=== PATIENT | male | born 1955 | race Caucasian/White ===

== ENCOUNTER 2022-05-28 15:15 | Emergency (ER) | payer OTHER, SELFPAY ==
[2022-05-28 15:35] VITALS: BP 170/80; PULSE 89; RESP 18; TEMP 36.7; O2SAT 98; BMI 30.9
--- NOTE | 2022-05-28 15:40 | XRR_ITS ---
PROCEDURE INFORMATION: Exam: XR Right Tibia and Fibula Exam date and time: 05/28/2022 4:12 PM Age: 66 years old Clinical indication: Injury or trauma; Other: Laceration; Lower leg; Left; Foreign body involvement not specified; Additional info: Injury/laceration TECHNIQUE: Imaging protocol: Radiologic exam of the Right tibia and fibula. Views: 2 views. COMPARISON: No relevant prior studies available. FINDINGS: Bones/joints: Normal. Soft tissues: Suspected laceration seen along the medial aspect of the distal tibial diaphysis. XR/XR tibia fibula RT 2V 06007 IMPRESSION: Suspected laceration seen along the medial aspect of the distal tibial diaphysis.
[2022-05-28 15:59] LABS: Basophils % 0.3 %; Eosinophils # 0.1 10^3/uL (0.0-0.8); Eosinophils % 1.2 %; Hematocrit 39.8 % (42.0-52.0); Hemoglobin 13.7 g/dL (11.7-16.6); Lymphocytes # 1.8 10^3/uL (0.8-4.8); Lymphocytes % 20.4 %; Mean Corpuscular HGB Conc 34.4 g/dL (30.0-36.0); Mean Corpuscular Hemoglobin 32.8 pg (28.0-34.0); Mean Corpuscular Volume 95.2 fl (80-94); Mean Platelet Volume 11.2 fL (7.4-10.4); Monocytes # 0.6 10^3/uL (0.2-0.9); Monocytes % 6.9 %; Neutrophils # 6.23 10^3/uL (1.8-7.7); Neutrophils % 70.9 %; Nucleated Red Blood Cells % 0 %; Platelet Count 230 10^3/cmm (130-400); Red Blood Count 4.18 10^6/uL (4.1-5.3); Red Cell Distribution Width 12.4 % (12.1-15.1); White Blood Count 8.8 10^3/uL (4.0-10.0)
--- NOTE | 2022-05-28 16:10 | ED_ITS ---
HPI - General Adult General: Chief complaint: Wound/Laceration Stated complaint: Right calf pain, possible infection/injury Time Seen by Provider: 05/28/22 16:02 History of Present Illness: Patient is a 66-year-old male with history of diabetes who presents emergency room with concerns of right lower extremity wound. Patient tells me that he sustained a laceration 2 weeks ago after a piece of the tree fell onto his right leg. Since then, patient has been cleaning the wound with bacitracin. Patient has noticed intermittent weeping of blood. Patient says that he applies bacitracin ointment every 2 to 3 days. Patient denies any fever/chills, nausea/vomiting. Patient has not noticed any drainage or pus from the wound. Patient set to come to the emergency room for evaluation of the wound because over the last few days the wound has come more painful. Denies naueea/vomiting, fever/chill, chest pain, shortness of breath, abdominal pain, dysuria/hematuria/polyuria, diarrhea/melena/hematochezia. Onset:2 weeks ago Duration:2 weeks Location:home Severity:moderate Associated symptoms: Reports rash (+R medial leg wound); Deny chest pain, dyspnea, nausea, palpitations or vomiting Review of Systems Const: Denies: fever(s) or chills Eyes: Denies: change in vision ENMT: Denies: mouth pain Card: Denies: chest pain or palpitations Resp: Denies: dyspnea or non-productive cough GI: Denies: abdominal pain, nausea, vomiting or diarrhea : Denies: dysuria Musc: Reports: extremity pain (+R leg wound and pain) Skin/Breast: Reports: rash (+R medial leg wound) Neuro: Denies: weakness in extremities Psych: Reports: other (Normal mood) Christopher/Lymph: Denies: easy bruising PFSH ED PFSH: Medical History Diabetes Social History Smoking and tobacco status: never smoked Alcohol intake: never Substance/Drug Use: never Physical Exam Const: COMMON NORMALS: alert HENMT: COMMON NORMALS: atraumatic HEAD & SCALP: atraumatic MOUTH: moist mucous membranes not abnormal Eye: COMMON NORMALS: EOMs intact bilaterally and conjunctivae normal CONJUNCTIVA: Yes conjunctivae normal Neck/C-Spine: COMMON NORMALS: full ROM and supple Resp: COMMON NORMALS: normal respiratory effort and clear to auscultation bilaterally AUSCULTATION: clear to auscultation bilaterally Cardio: COMMON NORMALS: regular rate RATE: regular rate GI: COMMON NORMALS: Soft to palpation and non-tender PALPATION: Yes Soft to palpation Extremity: COMMON NORMALS: full ROM Neuro: SENSORIUM/ORIENTATION: Yes alert MOTOR EXAM: No Abnormal motor strength present and Other motor observations present (no focal motor deficits) Psych: COMMON NORMALS: speech normal SPEECH: Yes normal speech MOOD & AFFECT: Yes euthymic mood OTHER: +R medial mid tib/fib 3cm granulating healing wound without any drainage/ulceration. +Presence mild surrounding erythema around the wound sound tenderness to palpation without any crepitus or bulla Course Vital Signs: Vital signs: Vital Signs Temperature 98.0 F 05/28/22 15:35 Pulse Rate 89 05/28/22 15:35 Respiratory Rate 18 05/28/22 15:35 Blood Pressure 170/80 05/28/22 15:35 Pulse Oximetry 98 05/28/22 15:35 Oxygen Delivery Me thod 05/28/22 15:35 MDM - General Adult Medical Decision Making Patient is a 66-year-old male with history of diabetes who presents emergency room with concerns of right lower extremity wound for 2 weeks. There appears to be a 3 cm right medial healing wound wihtout any drainage with surrounding erythema. Patient is noted to have white count 8.8. Potassium 3.3., Sodium of 133. Patient received Keflex in the ER. Her chest appears to be clear. Ultrasound not show signs of abscess or collection. I have given patient follow up with our special education case manager to be seen by our outpatient wound care clinic for reassessment of wound. Patient aware of a call from our special education case manager to schedule for appointment(s) and verbalizes understanding of the importance of following up. Rx cephalexin for cellulitis Disposition: Discharge. Patient counseled regarding diagnostic impression, treatment plan. Patient given ED strict return precautions to return for continuation, worsening, or development of new symptoms. Instructed to f/u w/ PCP regarding symptoms today. Patient verbalized understanding. Lab Data : 05/28/22 15:54 05/28/22 16:50 Radiology Impressions Tibia/Fibula X-Ray 05/28/22 15:40 IMPRESSION: Suspected laceration seen along the medial aspect of the distal tibial diaphysis. Venous Duplex 05/28/22 16:48 IMPRESSION: 1. Negative for deep venous thrombosis. 2. Subcutaneous edema in the calf. Laboratory Results WBC 8.8 10^3/uL (4.0-10.0) 05/28/22 15:54 RBC 4.18 10^6/uL (4.1-5.3) 05/28/22 15:54 Hgb 13.7 g/dL (11.7-16.6) 05/28/22 15:54 Hct 39.8 % (42.0-52.0) L 05/28/22 15:54 MCV 95.2 fl (80-94) H 05/28/22 15:54 MCH 32.8 pg (28.0-34.0) 05/28/22 15:54 MCHC 34.4 g/dL (30.0-36.0) 05/28/22 15:54 RDW 12.4 % (12.1-15.1) 05/28/22 15:54 Plt Count 230 10^3/cmm (130-400) 05/28/22 15:54 MPV 11.2 fL (7.4-10.4) H 05/28/22 15:54 Neut % (Auto) 70.9 % 05/28/22 15:54 Lymph % (Auto) 20.4 % 05/28/22 15:54 [place] % (Auto) 6.9 % 05/28/22 15:54 Eos % (Auto) 1.2 % 05/28/22 15:54 Baso % (Auto) 0.3 % 05/28/22 15:54 Neut # (Auto) 6.23 10^3/uL (1.8-7.7) 05/28/22 15:54 Lymph # (Auto) 1.8 10^3/uL (0.8-4.8) 05/28/22 15:54 [place] # (Auto) 0.6 10^3/uL (0.2-0.9) 05/28/22 15:54 Eos # (Auto) 0.1 10^3/uL (0.0-0.8) 05/28/22 15:54 Baso # (Auto) 0.0 10^3/uL (0.0-0.1) 05/28/22 15:54 Nucleated RBC % (auto) 0 % 05/28/22 15:54 Nucleated RBCs # 0.0 /100WBC 05/28/22 15:54 Sodium 133 mmol/L (136-145) L 05/28/22 16:50 Potassium 3.3 mmol/L (3.5-5.1) L 05/28/22 16:50 Chloride 95 mmol/L (98-107) L 05/28/22 16:50 Carbon Dioxide 25 mmol/L (22-29) 05/28/22 16:50 Anion Gap 16.3 (5-19) 05/28/22 16:50 BUN 6 mg/dL (8-23) L 05/28/22 16:50 Creatinine 0.7 mg/dL (0.7-1.2) 05/28/22 16:50 GFR Calculation 112.5 mL/min (90-130) 05/28/22 16:50 Glucose 371 mg/dL (65-115) H 05/28/22 16:50 Calculated Osmolality 289 mOsm/kg (285-295) 05/28/22 16:50 Calcium 8.5 mg/dL (8.5-10.5) 05/28/22 16:50 Total Bilirubin 0.4 mg/dL (0.15-1.2) 05/28/22 16:50 AST 11 U/L (0-40) 05/28/22 16:50 ALT 9 U/L (0-41) 05/28/22 16:50 Alkaline Phosphatase 94 U/L (40-130) 05/28/22 16:50 Total Protein 7.2 g/dL (6.6-8.7) 05/28/22 16:50 Albumin 3.5 g/dL (3.5-5.2) 05/28/22 16:50 Globulin 3.7 g/dL (1.3-4.6) 05/28/22 16:50 Imaging Data Other Imaging: Radiologist's impression: [address] [place] [address] Ultrasound Report Signed Patient: Dimitry Ch Unit #: [id number] : 1955 Age/Sex: 66 / M ADM Date: 05/28/22 Loc: ER Room/Bed: Attending Dr: Ordering Provider/Ordering MD: Jack Blank MD Date of Service: 05/28/22 Procedure(s): [place] [address] Accession Number(s): [id number] Report Number: [id number] PROCEDURE INFORMATION: Exam: US Duplex Right Lower Extremity Veins, Limited Exam date and time: 05/28/2022 5:03 PM Age: 66 years old Clinical indication: Pain and injury or trauma; Other: Hit with a block of wood medial RT lower leg; Blunt trauma (contusions or hematomas); Right; Lower extremity, lower leg level; Vessel not specified; Leg, lower; Injury date: 2 weeks ago per PT; Injury details: Block of wood fell from stack and hit PT in medial RT lower leg. It has not healed. Patient HX: Pain at injury site. ; Additional info: Eval for abscess TECHNIQUE: Imaging protocol: Real-time Duplex ultrasound of the Right Lower Extremity with 2-D kilpatrick scale, color Doppler flow and spectral waveform analysis with image documentation. Limited exam was focused on the right lower extremity veins. COMPARISON: CR XR tibia fibula RT 2V 36157 05/28/2022 4:12 PM FINDINGS: Right deep veins: Unremarkable. The common femoral, femoral, proximal profunda femoral and popliteal veins are patent without thrombus. Normal Doppler waveforms. Normal compressibility and/or augmentation response.? Right superficial veins: Unremarkable. Saphenofemoral junction is patent without thrombus. Soft tissues: Subcutaneous edema in the calf. US/[place] [address] IMPRESSION: 1. Negative for deep venous thrombosis. 2. Subcutaneous edema in the calf. ? Dictated By: Abdiel Clifton MD Signed By: Abdiel Clifton MD Signed Date/Time: 05/28/22 174 DD/ [address] [address] XRay Report Signed Patient: Dimitry Ch Unit #: [id number] : 1955 Age/Sex: 66 / M ADM Date: 05/28/22 Loc: ER Room/Bed: Attending Dr: Ordering Provider/Ordering MD: Barber Barrientos DO Date of Service: 05/28/22 Procedure(s): XR tibia fibula RT 2V 10049 Accession Number(s): [id number] Report Number: [id number] PROCEDURE INFORMATION: Exam: XR Right Tibia and Fibula Exam date and time: 05/28/2022 4:12 PM Age: 66 years old Clinical indication: Injury or trauma; Other: Laceration; Lower leg; Left; Foreign body involvement not specified; Additional info: Injury/laceration TECHNIQUE: Imaging protocol: Radiologic exam of the Right tibia and fibula. Views: 2 views. COMPARISON: No relevant prior studies available. FINDINGS: Bones/joints: Normal. Soft tissues:? Suspected laceration seen along the medial aspect of the distal tibial diaphysis. XR/XR tibia fibula RT 2V 62380 IMPRESSION: Suspected laceration seen along the medial aspect of the distal tibial diaphysis. ? Dictated By: Abdiel Clifton MD Signed By: Abdiel Clifton MD Signed Date/Time: 05/28/22 164 DD/ 1612 Discharge Plan Discharge Patient Disposition: Home Clinical Impression: Visit for wound care, Cellulitis, Healing wound Condition: Stable Prescriptions: New cephalexin 500 mg capsule 500 mg PO BID 10 Days Qty: 20 0RF Florastor 250 mg capsule 250 mg PO BID 10 Days Qty: 20 0RF Discharge Orders: Discharge ED (Routine); Ordered 05/28/22 Ordered By: Jack Blank Referrals: Lamberto Granado DO [Primary Care Provider] - Discharge Diet: Advance as tolerated Discharge Activity: Increase activity as tolerated Activity Restrictions/Additional Instructions: Our special education case manager will have you follow-up with the wound clinic in the next few days. You would be expected to have a phone call with our special education case manager who will put you on the schedule. You can expect a call from us in the next 2-3 days. If you don't hear from us, call us back in the emergency room at [phone]. Please take your antibiotics as instructed. Watch out for signs of skin changes/redness, mouth redeness or swelling, nausea/vomiting, diarrhea, blood in the urine or any new or concerning complaints. Coding Level of Care Code ED Cheese Sprayer for Chg Fwd Exam Comprehensive
--- NOTE | 2022-05-28 16:48 | USR_ITS ---
PROCEDURE INFORMATION: Exam: US Duplex Right Lower Extremity Veins, Limited Exam date and time: 05/28/2022 5:03 PM Age: 66 years old Clinical indication: Pain and injury or trauma; Other: Hit with a block of wood medial RT lower leg; Blunt trauma (contusions or hematomas); Right; Lower extremity, lower leg level; Vessel not specified; Leg, lower; Injury date: 2 weeks ago per PT; Injury details: Block of wood fell from stack and hit PT in medial RT lower leg. It has not healed. Patient HX: Pain at injury site. ; Additional info: Eval for abscess TECHNIQUE: Imaging protocol: Real-time Duplex ultrasound of the Right Lower Extremity with 2-D kilpatrick scale, color Doppler flow and spectral waveform analysis with image documentation. Limited exam was focused on the right lower extremity veins. COMPARISON: CR XR tibia fibula RT 2V 97300 05/28/2022 4:12 PM FINDINGS: Right deep veins: Unremarkable. The common femoral, femoral, proximal profunda femoral and popliteal veins are patent without thrombus. Normal Doppler waveforms. Normal compressibility and/or augmentation response. Right superficial veins: Unremarkable. Saphenofemoral junction is patent without thrombus. Soft tissues: Subcutaneous edema in the calf. US/[place] [address] IMPRESSION: 1. Negative for deep venous thrombosis. 2. Subcutaneous edema in the calf.
[2022-05-28 17:19] LABS: Alanine Aminotransferase 9 U/L (0-41); Albumin Level 3.5 g/dL (3.5-5.2); Alkaline Phosphatase 94 U/L (40-130); Anion Gap 16.3 (5-19); Aspartate Amino Transferase 11 U/L (0-40); Blood Urea Nitrogen 6 mg/dL (8-23); Calcium 8.5 mg/dL (8.5-10.5); Carbon Dioxide 25 mmol/L (22-29); Chloride 95 mmol/L (98-107); Globulin 3.7 g/dL (1.3-4.6); Glomerular Filtration Rate 112.5 mL/min (90-130); Glucose 371 mg/dL (65-115); Osmolality Calculated 289 mOsm/kg (285-295); Potassium 3.3 mmol/L (3.5-5.1); Sodium 133 mmol/L (136-145); Total Bilirubin 0.4 mg/dL (0.15-1.2); Total Protein 7.2 g/dL (6.6-8.7)
[2022-05-28 18:33] VITALS: BP 170/80; PULSE 89; RESP 18; TEMP 36.7; O2SAT 98
--- NOTE | 2022-05-31 10:05 | PC.SOCIAL ---
Addendum entered by Ana M Mantilla 06/09/22 13:34: Patient had a follow up appointment scheduled with Wound Care - patient did attend appointment. Original Note: Wound Care F/u Consult received for wound care follow up. Messaged wound care clinic for appointment as well as [facility] Clinic will contact patient with appointment date/time.
== END 2022-05-28 18:35 | disposition home or self-care (01) ==
PROVIDERS: Family Medicine; Emergency Provider Emergency Medicine; PCP Emergency Medicine Emergency Medical Services
DX: L03.115 Cellulitis of right lower limb (principal); E11.9 Type 2 diabetes mellitus without complications
CPT/HCPCS: 36415; 73590; 80053; 85025; 93971; 99285

== ENCOUNTER → 2022-06-03 13:15 | Outpatient (BNVA) | payer OTHER, SELFPAY | PROVIDERS: PCP Emergency Medicine Emergency Medical Services; Visit Provider Nurse Practitioner Family | DX: I96 Gangrene, not elsewhere classified (principal); E11.622 Type 2 diabetes mellitus with other skin ulcer; L97.819 Non-pressure chronic ulcer of other part of right lower leg with unspecified severity | CPT/HCPCS: 11042; 87070; 87077; 87186; 99212 ==

== ENCOUNTER → 2022-06-10 10:28 | Outpatient (BNVA) | payer OTHER, SELFPAY | PROVIDERS: PCP Emergency Medicine Emergency Medical Services; Visit Provider Nurse Practitioner Family | DX: I96 Gangrene, not elsewhere classified (principal); E11.622 Type 2 diabetes mellitus with other skin ulcer; L97.819 Non-pressure chronic ulcer of other part of right lower leg with unspecified severity | CPT/HCPCS: 11043 ==

== ENCOUNTER → 2022-06-18 13:31 | Outpatient (BNVA) | payer OTHER, SELFPAY | PROVIDERS: PCP Emergency Medicine Emergency Medical Services; Visit Provider Surgery | DX: I96 Gangrene, not elsewhere classified (principal); E11.622 Type 2 diabetes mellitus with other skin ulcer; L97.812 Non-pressure chronic ulcer of other part of right lower leg with fat layer exposed | CPT/HCPCS: 11043; A6212 ==

== ENCOUNTER 2022-06-22 11:00 | Day surgery (SDC) | payer OTHER, SELFPAY ==
[2022-06-21 13:53] VITALS: BMI 29.2
[2022-06-22] VITALS (12 sets, daily range): BP systolic 107–179; BP diastolic 42–106; PULSE 58–86; RESP 12–18; TEMP 36.6–36.9; O2SAT 93–100
[2022-06-22] MEDS: heparin 5,000 unit/mL INJ 1 mL 2000 UNIT SUBCUT (11:52)
[2022-06-22] MEDS: sodium chloride 0.9% 1,000 ML 30 ML IV (11:52)
[2022-06-22 12:00] LABS: Glucose Point of Care 245 mg/dL (70-110)
--- NOTE | 2022-06-22 12:01 | W.PM.OPSUD ---
Surgery/Procedure H&P Update DATE OF PROCEDURE: June 22, 2022 DATE H&P PERFORMED: 06/18/22 H&P UPDATE INFORMATION: I have reviewed H&P completed within last 30 days, I have examined patient prior to procedure and No changes to prior documentation PREOP DIAGNOSIS: Right lower extremity wound PRIMARY INDICATION FOR PROCEDURE: The same PLANNED PROCEDURE: Operation Date: 06/22/22 12:40 Proposed Procedures p Debridement of right leg wound 16532,E11.622,L03.115(Right) - Wilber Valdovinos MD
--- NOTE | 2022-06-22 12:06 | ANES.PREANE2 ---
Pre-Anesthetic Assessment Height/Weight: Height 1.6 m Weight 74.843 kg Temp Pulse Resp BP Pulse Ox O2 Del Method 98.4 F 72 12 179/106 93 06/22/22 11:11 06/22/22 11:11 06/22/22 11:11 06/22/22 11:11 06/22/22 11:11 06/22/22 11:38 Preop Diagnosis: Right lower extremity wound Operation Date: 06/22/22 12:40 Proposed Procedures p Debridement of right leg wound 56879,E11.622,L03.115(Right) - Wilber Valdovinos MD Familial anesthetic complications: None Was Beta Sirena taken within 24 hours: N/A Was Clonidine taken within 24 hours: N/A Last intake: Intake Last Liquid Date 06/21/22 Last Liquid Time 19:00 Last Solid Date 06/21/22 Last Solid Time 19:00 Social No alcohol and No tobacco Exam alert, oriented x 3, clear to auscultation bilaterally and regular rate & rhythm Airway Mallampati: Class II Dentition: other (multiple missing, poor dentition) Pulmonary Sleep Apnea CV/HEM Hypertension Metabolic Diabetes Mellitus and Thyroid Disease Neuropsych Cerebrovascular Accident Anesthetic Plan ASA status: 3 Anesthesia: General Other: LMA Risk of > 500 ml blood loss (7ml/kg in children): No Medications/Allergies Home Medications Medication Instructions Recorded Confirmed Last Taken Type ciprofloxacin HCl 500 mg tablet 500 mg PO BID wound infection 06/07/22 06/22/22 06/22/22 Rx days #20 tabs aspirin 81 mg chewable tablet 81 mg PO DAILY 06/22/22 06/22/22 06/20/22 History lisinopril 5 mg tablet 2.5 mg 06/22/22 06/20/22 History metformin 500 mg tablet 500 mg PO BID 06/22/22 06/22/22 06/20/22 History rosuvastatin 10 mg tablet 10 mg PO DAILY 06/22/22 06/22/22 06/20/22 History Allergies Allergy/AdvReac Type Severity Reaction Status Date / Time gabapentin Allergy Unknown Unknown Unverified 06/21/22 13:50 hydrocodone [From Vicodin] Allergy Unknown ADR-Nightma Unverified 06/21/22 13:50 re Current Medications Generic Name Dose Route Start Last Admin Trade Name Freq PRN Reason Stop Dose Admin Sodium Chloride 1,000 mls @ 30 mls/hr 06/22/22 11:15 06/22/22 11:52 Sodium Chloride 0.9% IV 06/23/22 11:14 30 mls/hr .Q24H ABRIL Administration PFSH Anesthesia Medical History Diabetes Social History Smoking and tobacco status: never smoked Alcohol intake: never Data Anesthesia Cardiac Studies: No Data to Display
[2022-06-22] MEDS: acetaminophen 1,000 MG/100 ML PIGGYBACK 400 MG IV (12:11)
--- NOTE | 2022-06-22 13:00 | SUR.OPER ---
1250 vashe solution used for irrigation
--- NOTE | 2022-06-22 13:01 | P.OP_ITS ---
Operative Report Date of procedure: June 22, 2022 Pre-op diagnosis: Preop Diagnosis Right lower extremity wound Post-op diagnosis: Right lower extremity wound Procedure done: Excisional and sharp debridement of right lower extremity wound Implants: Surgicel followed by mini Kerlix then ABDs, Kerlix and William wrap Specimens removed/disposition: Tissues for cultures and sensitivities Surgeon: Wilber Valdovinos MD Local Superintendent: electronic bench technician Hellen Circulating nurse Alva Traylor Anesthesia: General (Crnas Barrie and Antwan) Estimated blood loss (mL): 5 IV fluids (mL): 600 Procedure: After identifying the patient holding area, the right lower extremity was marked before the procedure by myself, patient was then taken to the operative suite, was placed in supine position, IV antibiotics were given per protocol, LMA was placed by the anesthesia provider, prep and drape of the wound region(right posterior lateral aspect of the right calf region) was done under the usual sterile technique. Time-out was done verifying the patient's name/date of /planned procedure and destination after the procedure, all were in agreement.Started by excising the unhealthy necrotic indurated tissues of the wound.Notice undermining of franc woun dcaudad and laerally.Incision was created at the skin level and went all the way down to the subcutaneous tissues and muscular fascial layer. Posterior lateral aspect of the right calf region: Wound measurements ; Pre Debridement measurements; 2.8 x 2.4 x 0.8 cm Post-debridement measurement; 8.6 x 4.4 x 0.9 cm Sharp and excisional debridement using curved Izquierdo scissor and curette all the way to the healthier subcutaneous level /muscular fascial layer Traversing veins were suture-ligated transfixing using 3-0 silk sutures Tissues were sent for cultures and sensitivities Copious Irrigation of the wound was done using Pulsavac 1 L of Vashe followed by 1 L of warm saline, followed by appropriate hemostasis,One large piece of Surgicel was placed at the wound bed followed by packing of the wound was done with miniKerlix impregnated inlidocaine, followed by piece of ABDs, Kerlix and William wrap. Intact right DP and TP arteries were clinically palpable at the end of the procedure. Patient tolerated the procedure well, count of instruments,needles and sponges were completed at the end of the procedure. Patient was then taken to the recovery area in stable condition. I was present for the whole entire procedure
[2022-06-22] MEDS: fentaNYL 50 mcg/mL INJ 2mL IVP (13:15)
--- NOTE | 2022-06-22 13:15 | ANE.PACU2 ---
Inpatient post-anesthesia follow up: Airway intact: Yes Vital signs: Temperature 98.4 F Pulse Rate 72 Respiratory Rate 12 Blood Pressure 179/106 Pulse Oximetry 93 Oxygen Delivery Me thod Room Air Oxygen Flow Rate 6 Fraction of Inspir ed Oxygen Hydration adequate: Yes Nausea and vomiting: No Pain level: 4 Mental status: Baseline
[2022-06-22] MEDS: HYDROcodone-acetaminophen 5-325 mg Tablet 1 TAB PO (14:08)
[2022-06-22] MEDS: ondansetron 2 mg/ML SDV 2 mL 4 MG IVP (14:11)
== END 2022-06-22 14:55 | disposition home or self-care (01) ==
PROVIDERS: PCP Emergency Medicine Emergency Medical Services; Visit Provider Surgery
PROC: (CPT 11043; principal; 2022-06-22 12:30)
DX: S81.801A Unspecified open wound, right lower leg, initial encounter (principal); X58.XXXA Exposure to other specified factors, initial encounter; L03.115 Cellulitis of right lower limb; E11.622 Type 2 diabetes mellitus with other skin ulcer; I10 Essential (primary) hypertension; Z86.73 Personal history of transient ischemic attack (TIA), and cerebral infarction without residual deficits; Z79.82 Long term (current) use of aspirin
CPT/HCPCS: 11043; 36416; 82962; 87070; 87176; 87205; J0131; J1100; J1644; J2405; J2704; J3010; J7030

== ENCOUNTER → 2022-06-25 13:41 | Outpatient (BNVA) | payer OTHER, SELFPAY | PROVIDERS: PCP Emergency Medicine Emergency Medical Services; Visit Provider Surgery | DX: I96 Gangrene, not elsewhere classified (principal); E11.622 Type 2 diabetes mellitus with other skin ulcer; L97.812 Non-pressure chronic ulcer of other part of right lower leg with fat layer exposed | CPT/HCPCS: 11043; 11046 ==